=== PATIENT | male | born 1980 | race Caucasian/White ===

== ENCOUNTER → 2022-01-26 07:35 | Outpatient (CLI) | payer OTHER, SELFPAY ==
--- NOTE | 2022-01-26 07:40 | DI.RAD.S_ITS ---
PROCEDURE: FL SHOULDER INJECTION MR/CT RT INDICATIONS: SHOULDER PAIN COMPARISON: None. TECHNIQUE: The indications, alternatives, benefits, risks, and complications of the procedure were explained to the patient. Written informed consent was obtained and placed in the chart. The shoulder was examined fluoroscopically and a site for needle placement chosen for entry into the glenohumeral joint from an anterior approach. The skin was prepped and draped in a sterile fashion, and 1% lidocaine infiltrated from skin down to joint capsule. A spinal needle was inserted into the glenohumeral joint, and a small amount of iodinated contrast media injected to confirm intra-articular placement of the needle tip. This was followed by approximately 12 mL dilute solution of a gadolinium containing MR contrast agent. The needle was removed and a dressing was applied. The patient was given postprocedural instructions and sent to the MR suite for MR imaging. FINDINGS: A single fluoroscopic spot image demonstrates intra-articular location of injected iodinated contrast. IMPRESSION: Successful fluoroscopically guided administration of dilute Gadolinium solution into the shoulder joint for MR arthrogram. Dictated by: Franklyn Ferraro M.D. on 01/26/2022 at 9:24 Approved by: Franklyn Ferraro M.D. on 01/26/2022 at 9:24
--- NOTE | 2022-01-26 07:41 | DI.MRI.S_ITS ---
PROCEDURE: MR SHOULDER RT W CON INDICATIONS: SHOULDER PAIN TECHNIQUE: After the administration of 12 mL of dilute intra-articular Gadolinium contrast, oblique coronal T1 and T2 spin echo with fat saturation, oblique sagittal T1 spin echo with and without fat saturation, oblique sagittal T2 fast spin echo with fat saturation, axial T1 spin echo with fat saturation through the shoulder. COMPARISON: None. FINDINGS: Image quality: Study is degraded due to large body habitus. A body coil was used instead of a dedicated shoulder coil. Rotator cuff: There is tendinosis and low-grade articular and bursal surface partial thickness tear involving distal supraspinatus at its insertion on the humeral head extending to musculotendinous junction. Distal infraspinatus is intact. Mild distal subscapularis tendinosis is seen. No full-thickness rotator cuff tendon rupture. No rotator cuff muscle atrophy on sagittal images. Bones and bursae: No bone marrow contusions or fractures. Mild acromioclavicular joint osteoarthritic changes are seen with downward osteophyte formation depressing the musculotendinous junction of supraspinatus. The acromion demonstrates conventional anatomy, without an os acromiale. Capsule and soft tissues: There is no definite focal superior anterior labral tear. Signal abnormality and contour irregularity involving anterior inferior labrum is seen at 4 to 6 o'clock position suggestive of anterior-inferior labral tear. The glenohumeral ligaments appear intact. The long head of the biceps tendon demonstrates normal location and morphology. The rotator interval appears normal, without fibrosis. The coracohumeral ligament is of normal thickness. No intra-articular bodies. IMPRESSION: 1. Suggestion of anterior-inferior labral tear at 4 to 6 o'clock position. 2. Tendinosis and low-grade articular and bursal surface partial thickness tear involving distal supraspinatus extending to musculotendinous junction. Distal subscapularis tendinosis. No full-thickness rotator cuff tendon rupture. No muscle atrophy. 3. Mild acromioclavicular joint osteoarthritis. No acute fracture or dislocation. No definite Hill-Sachs fracture is seen. Dictated by: Franklyn Ferraro M.D. on 01/26/2022 at 9:59 Approved by: Franklyn Ferraro M.D. on 01/26/2022 at 10:02
== END ==
DX: M25.511 Pain in right shoulder (principal); S46.011A Strain of muscle(s) and tendon(s) of the rotator cuff of right shoulder, initial encounter; M19.011 Primary osteoarthritis, right shoulder
CPT/HCPCS: 23350; 73222; 77002

== ENCOUNTER → 2022-03-28 08:56 | Outpatient (CLI) | payer OTHER, SELFPAY ==
[2022-03-28 10:44] LABS: COVID19 -Nasal RAPID Negative (Negative)
== END ==
PROVIDERS: Visit Provider Family Medicine Sleep Medicine
DX: Z20.822 Contact with and (suspected) exposure to COVID-19 (principal)
CPT/HCPCS: 87635; C9803

== ENCOUNTER 2022-03-30 10:29 | Day surgery (SDC) | payer OTHER, SELFPAY ==
[2022-03-28 12:13] VITALS: BMI 38.2
[2022-03-30 11:00] VITALS: BP 154/8; PULSE 66; RESP 19; TEMP 36.6; O2SAT 98
[2022-03-30 11:16] VITALS: BMI 38.2
[2022-03-30] MEDS: LACTATED RINGERS 1,000 ML 42 ML IV (11:41)
--- NOTE | 2022-03-30 13:00 | PM.HP.1 ---
History of Present Illness History of Present Illness Date Patient Seen: 03/30/22 Time Patient Seen: 12:45 Chief complaint: RIGHT SHOULDER Narrative: 41-year-old gentleman with chronic right shoulder pain that has been unresponsive to conservative treatment. MRI shows signs of a partial rotator cuff tear. Patient History Medical History DJD (degenerative joint disease) TIFFANY (obstructive sleep apnea) Tendinopathy of right rotator cuff Surgical History H/O vasectomy Hx of LASIK Family & Social History Social History: household members spouse Tobacco & Substance use: Smoking Status Former smoker alcohol intake current alcohol intake frequency 3 or more drinks per day Substance Use Type does not use Meds Home Medications and Allergies Home Medications Medication Instructions Recorded Confirmed Type No Known Home Medications 03/28/22 03/28/22 History Allergies Allergy/AdvReac Type Severity Reaction Status Date / Time No Known Drug Allergies Allergy Verified 03/30/22 11:14 Exam Vital Signs (past 8 hours): - 03/30/22 11:00 Temperature 97.8 F Pulse Rate 66 Respiratory Rate 19 Blood Pressure 154/8 H Pulse Oximetry 98 Oxygen Delivery Method Room Air Narrative Exam Narrative: Difficulty with active range of motion but has full passive range of motion. No sign of any stiffness or contractures. No sign of any glenohumeral joint crepitus or instability. Pain and weakness with supraspinatus strength testing and positive impingement signs. Assessment & Plan Assessment & Plan narrative: Right shoulder impingement with partial rotator cuff tear that has been unresponsive to conservative treatment. Due to this fact patient is interested in surgery. All of his questions and concerns were answered to his full satisfaction. The risk, benefits, alternatives, possible complications, operative course, and postop outcomes were discussed. Complications including but not limiting to bleeding, infection, fracture, nerve injury, continued pain postoperatively or instability postoperatively were discussed in detail. Medical complications including but not limited to deep venous thrombosis event, anesthesia complications with excessive bleeding, vascular events or cardiac events and other possible complications were discussed in detail. Need for postoperative rehabilitation and anticipated hospital stay and clinical course were discussed in detail. Patient acknowledges understanding and elects to proceed with surgery. Time Spent With Patient Critical Care time: I spent a total of [] minutes of critical care time on this patient's care today; this time is exclusive of procedural time.
--- NOTE | 2022-03-30 13:02 | PM.PREOP ---
Pre-operative Note Interval Note History & Physical reviewed/Exam performed by Physician: Yes Changes to H&P: No
--- NOTE | 2022-03-30 13:33 | SUR.PREOP ---
Block start time [1300 ] . Monitoring initiated and maintained throughout procedure. Oxygen and medications given per anesthesiologist instructions. Patient remained stable throughout procedure, no adverse reactions noted. Block end time [1330 ].
[2022-03-30] MEDS: CEFAZOLIN 2 GM/20 ML SYRINGE IV (13:45)
[2022-03-30] MEDS: BUPIVACAINE 0.5% W/ EPI (PF) 30 ML VIAL 10 ML INJ (14:00)
--- NOTE | 2022-03-30 14:03 | SUR.OPER ---
Beach chair on padded OR bed. Head secured with head cradle with forehead and chin straps. Non-operative arm secured <90 degrees abduction on padded arm board. Pillow under knees. Safety belt at thigh. Gel pad under heels.
[2022-03-30] MEDS: EPINEPHRINE IRR (14:30)
[2022-03-30] MEDS: SODIUM CHLORIDE IRR (14:30)
--- NOTE | 2022-03-30 14:36 | P.OP_ITS ---
Operative Date/Time/Diagnoses Date of procedure: 03/30/22 Time of procedure: 13:30 Pre-op diagnosis: Right shoulder partial rotator cuff tear with subacromial impingement. Post-op diagnosis: same Procedure & Clinicians Procedure: Right shoulder arthroscopic extensive debridement with subacromial decompression. Same procedure as scheduled: Yes Indications: Patient with right shoulder pain unresponsive to conservative treatment. Patient had MRI findings of a partial rotator cuff tear. Surgeon: Margarito Chase [employer] Sales Leader: Ridge Edmonds Anesthesia Type: General and Peripheral nerve block Operative Notes Findings: Mild to moderate partial rotator cuff tearing mainly involving the bursal aspect of the rotator cuff. No sign of any high-grade tears or full-thickness tears. Patient had rather mild partial tearing involving the articular surface. Synovitis and bursitis in the subacromial and subdeltoid space. Some signs of AC joint arthritis but not significant. Bicep tendon free of any tearing or pathology. Slight fraying of the superior labrum but no sign of any significant SLAP tear. No sign of any Bankart tear. No sign of any loose bodies in the glenohumeral joint. No sign of any stone loss of cartilage to the glenohumeral joint Estimated Blood Loss (mL): 5 Procedure in detail: On date of service, Patient was met in the holding area. The operative site was signed and witnessed by the OR staff. The surgeries once again discussed with the patient and any remaining questions they had were answered fully. Patient was taken back to the operating theater and placed on the operating table in a supine position. Great care was taken to ensure that all bony prominences were properly padded. Patient was then placed into the beach chair position. The head and neck were properly positioned and secured. A timeout was performed verifying patient's name, procedure, and the operative site. The upper extremity was then prepped and draped in the normal sterile fashion. Previously, the bony anatomy and portal sites were marked out as well as injected with Marcaine with epinephrine. An 11 blade was used to make an incision in the posterior aspect of the shoulder. The camera was placed, and a diagnostic shoulder scope was performed. Findings listed above. Next under direct visualization, a anterior portal was made. Shaver was placed into the anterior portal and a extensive debridement of the glenohumeral joint was performed. Shaver was used to debride the degenerative changes throughout the labrum as well as a type 1 slap tear. Also used to debride the partial tearing to the articular surface of the rotator cuff. We debrided down to more healthy rotator cuff tissue. Next the camera was placed into the subacromial space. A lateral portal was obtained under direct visualization. A combination of the shaver and vapor wand, a debridement of the inflamed tissue as well as inflamed bursa was performed. The lateral gutter was also cleaned out. This gave us good visualization of the bursal aspect of the rotator cuff as well as the acromial arch. There was an obvious impingement lesion in the acromial arch. Shaver was used to debride the subacromial and subdeltoid space. This gave us good visualization of the bursal aspect of the rotator cuff. There was some [id number] fraying of the rotator cuff but no sign of any high-grade tears or full-thickness tears. Next we turned our attention to the subacromial decompression. Next, a richar was then used to do a subacromial decompression. This allowed us to convert the acromion to a type I acromial. This also allowed us to shave down the bony lesion in the acromial space. The rasp was placed into the lateral portal as well as the anterior portal in order to do a complete subacromial decompression. We next turned our attention to the distal clavicle. Soft tissue around the inferior aspect of the distal clavicle and AC joint was removed. No sign of any significant inferior osteophytes were AC joint arthritis. We then turned our attention to the rotator cuff tear. Shaver was used to debride once again any fraying or partial tearing to the superior portion of the rotator cuff. Also used to remove any remaining synovitis and inflamed bursal tissue. The shoulder was then taken through range of motion and there was no sign of any additional impingement. Patient's shoulder was then cleaned dried and dressed and patient was taken to the PACU in stable condition. Complications: none Post-operative Condition: stable Disposition: PACU Plan for aftercare: Patient will follow our postoperative protocol for subacromial decompression.
[2022-03-30 14:44] VITALS: BP 146/96; PULSE 78; RESP 13; TEMP 36.5; O2SAT 93
[2022-03-30 14:53] VITALS: BP 123/76; PULSE 78; RESP 15; TEMP 36.4; O2SAT 93
[2022-03-30 15:00] VITALS: BP 130/62; PULSE 70; RESP 20; TEMP 36.3; O2SAT 93
--- NOTE | 2022-03-30 15:38 | P.PCN_ITS ---
Procedures Date/Time Date of procedure: 03/30/22 Time of procedure: 13:15 General Procedure description: Ultrasound guided interscalene brachial plexus nerve block for post op pain control after right shoulder arthroscopy by Dr. Chase. Risk and benefits of procedure discussed with patient. ASA monitoring applied to patient. O2 given via nasal cannula. 2 mg Versed and 50 mcg fentanyl given for procedural sedation. Skin site was prepped with chlorhexidine and allowed to fully dry. Sterile gloves, mask, hat and probe cover were used to maintain sterility. 2% lidocaine and 30ga needle was used to make a small skin wheal at needle inser tion site. Under ultrasound guidance, a 21ga 50mm Pajunk needle was directed into the interscalene groove (middle/anterior scalenes) near the brachial plexus. Patient reported no parasthesias. After negative aspiration, 20 mL 0.5% ropivicaine and 10mg dexamethasone were injected around brachial plexus. Patient tolerated procedure well.
== END 2022-03-30 15:52 | disposition home or self-care (01) ==
PROVIDERS: Referring Provider Orthopaedic Surgery; Visit Provider Orthopaedic Surgery
PROC: 0RQJ4ZZ Repair Right Shoulder Joint, Percutaneous Endoscopic Approach (ICD-10-PCS; CPT 29807; principal; 2022-03-30 13:00)
DX: S43.491A Other sprain of right shoulder joint, initial encounter (principal); M65.811 Other synovitis and tenosynovitis, right shoulder; M75.51 Bursitis of right shoulder; M19.011 Primary osteoarthritis, right shoulder; S43.431A Superior glenoid labrum lesion of right shoulder, initial encounter; G47.33 Obstructive sleep apnea (adult) (pediatric)
CPT/HCPCS: 29823; 29826; 64450; J0171; J0690; J1100; J2250; J2405; J2704; J3010

== ENCOUNTER 2023-08-28 06:08 | Day surgery (SDC) | payer OTHER, SELFPAY ==
[2023-08-22 12:56] VITALS: BMI 41.2
[2023-08-28 07:13] VITALS: BMI 40.9
[2023-08-28] MEDS: LACTATED RINGERS 1,000 ML 42 ML IV (07:17)
[2023-08-28 07:18] VITALS: BP 130/79; PULSE 73; RESP 17; TEMP 36.3; O2SAT 97
--- NOTE | 2023-08-28 07:35 | PM.PREOP ---
Pre-operative Note COVID-19 COVID-19 status: Not tested Interval Note History & Physical reviewed/Exam performed by Physician: Yes Changes to H&P: No ASA Class (for procedural sedation): II
[2023-08-28] MEDS: CEFAZOLIN 2 GM/100 ML PREMIX 100 ML IV (08:00)
[2023-08-28] MEDS: BUPIVACAINE 0.5% (PF) 30 ML, EPINEPHrine 0.15 MG INJ (08:09)
[2023-08-28 08:49] VITALS: BP 125/66; PULSE 80; RESP 16; TEMP 36.1; O2SAT 99
[2023-08-28 08:54] VITALS: BP 127/70; PULSE 80; RESP 12; O2SAT 98
--- NOTE | 2023-08-28 08:55 | PM.OP.1 ---
Operative Date/Time/Diagnoses Date of procedure: 08/28/23 Time of procedure: 08:55 Pre-op diagnosis: Umbilical hernia Post-op diagnosis: same Procedure & Clinicians Procedure: Open umbilical hernia repair with mesh Same procedure as scheduled: Yes Surgeon: Indio Redman Anesthesia Type: General Operative Notes Procedure in detail: Ancef was administered. The patient was brought to the operating room, placed on the table in the supine position and general endotracheal anesthesia was induced. The abdomen was prepped and draped in the usual fashion. A time-out was performed. A 5 cm curvilinear incision was made inferior to the umbilicus. The hernia sac was dissected free from the surrounding subcutaneous adipose tissue. The sac was dissected off the umbilical stalk using a combination of cautery, sharp and blunt dissection. The hernia sac was dissected free from the fascial ring and allowed to drop back down into the abdomen. The fascia was then closed transversely with multiple interrupted 0 Ethibond sutures. The subcutaneous adipose tissue was cleared off of the anterior sheath circumferentially about 2 cm in each direction. A piece of polypropylene mesh was trimmed to fit over the fascial closure and secured with Tisseel. Once the Tisseel was dried the umbilical skin was tacked down to the deep subcutaneous adipose tissue with a single 3-0 Vicryl stitch. The skin was closed with multiple interrupted 3-0 Vicryl dermal sutures followed by a running 4 Monocryl subcuticular closure. Steri-Strips were applied and an abdominal binder was applied. EBL: 10 mL Post-operative Condition: stable Disposition: PACU
[2023-08-28 09:00] VITALS: BP 140/74; PULSE 78; RESP 12; O2SAT 98
[2023-08-28 09:03] VITALS: BP 134/82; PULSE 74; RESP 13; O2SAT 98
[2023-08-28 09:08] VITALS: BP 139/83; PULSE 72; RESP 16; TEMP 35.9; O2SAT 97
== END 2023-08-28 09:28 | disposition home or self-care (01) ==
PROVIDERS: PCP Internal Medicine; Referring Provider Surgery; Visit Provider Surgery
PROC: (CPT 49591; principal; 2023-08-28 07:45)
DX: K42.9 Umbilical hernia without obstruction or gangrene (principal)
CPT/HCPCS: 49591; J0171; J0690; J1100; J1885; J2250; J2405; J2704; J3010

== ENCOUNTER 2024-03-13 12:17 | Emergency (ER) | payer OTHER, SELFPAY ==
[2024-03-13 12:30] VITALS: BP 145/92; PULSE 76; RESP 18; TEMP 36.4; O2SAT 94; BMI 38.6
--- NOTE | 2024-03-13 13:09 | ED.HA ---
HPI - Headache <Lloyd Alcantar PA-C - Last Filed: 03/13/24 14:35> General Chief Complaint: Headache Stated Complaint: memory loss Time Seen by Provider: 03/13/24 13:09 Mode of arrival: Ambulatory History of Present Illness HPI Narrative: This is a 43-year-old male presents emergency department due to 3-4 weeks reported episodes of ?forgetting things as well as? in his placing words. He states that for example when he said welcome to the ?Sunday meeting? he misplaced the word Sunday with the word ?fart?.. States there have been multiple episodes of of this causing him to be concerned. He was also reporting headaches for the last 2 weeks. Denies any slurred speech, nausea, vomiting, chest pain, or any other concerning signs or symptoms. Related Data Home Medications Medication Instructions Recorded Confirmed acetaminophen 500 mg tablet 500 mg PO Q6H PRN Pain (Scale 07/18/23 08/28/23 (Tylenol Extra Strength) Score 1-3) aluminum chloride 20 % topical 1 applic topical 3XW 07/18/23 08/28/23 solution (Drysol) ibuprofen 800 mg tablet 800 mg PO Q8H PRN Pain (Scale 07/18/23 08/28/23 Score 1-3) diclofenac sodium 1 % topical gel 1 ea topical DAILY 08/28/23 08/28/23 terbinafine HCl 250 mg tablet 250 mg PO DAILY 08/28/23 08/28/23 Allergies Allergy/AdvReac Type Severity Reaction Status Date / Time No Known Drug Allergies Allergy Verified 09/17/23 08:59 Review of Systems <Lloyd Alcantar PA-C - Last Filed: 03/13/24 14:35> Review of Systems Narrative: GENERAL: Denies chills, fatigue, malaise, fever, sweats. HEENT: Denies sinus pain, ear pain, sore throat, difficulty swallowing, dizziness. RESPIRATORY: Denies dyspnea, cough, wheezing, hemoptysis, sputum. CARDIOVASCULAR: Denies chest pain, palpitations, orthopnea, edema, GASTROINTESTINAL: Denies nausea, vomiting, abdominal pain, diarrhea, constipation, melena. : Denies dysuria, frequency, incontinence, hematuria, urinary retention. MUSCULOSKELETAL: denies weakness, joint pain, or bony pain SKIN: Denies rash, skin lesions, or other NEUROLOGIC: Reports ?misplacing words? headache, episodes of forgetfulness, Denies weakness, , numbness, seizures, incoordination. PSYCHIATRIC: No concerning psychosocial issues. 12 point review of systems is negative except for those stated above Patient History <Lloyd Alcantar PA-C - Last Filed: 03/13/24 14:35> Medical History Prediabetes Carpal tunnel syndrome Tendinopathy of right rotator cuff DJD (degenerative joint disease) TIFFANY (obstructive sleep apnea) Surgical History History of arthroscopy of right shoulder (03/30/22) H/O vasectomy Hx of LASIK Social History household members: spouse Smoking Status: Former smoker alcohol intake: current Smoking Status: Former smoker alcohol intake frequency: holidays/special occasions only Substance Use Type: does not use Exam <Lloyd Alcantar PA-C - Last Filed: 03/13/24 14:35> Narrative Exam Narrative: GENERAL: Well-developed patient, in mild distress. HEAD: Atraumatic. Normocephalic. EYES: Pupils equal round and reactive. Extraocular motions intact. No scleral icterus. No injection or drainage. ENT: Nose without bleeding, purulent drainage. Throat without erythema, tonsillar hypertrophy or exudate. Airway patent. NECK: Trachea midline. Non tender EXTREMITIES: No edema or joint tenderness. NEURO: AOx3. Cranial nerves 2-12 intact SKIN: No rash or erythema of visible areas Initial Vital Signs Initial Vital Signs: Vital Signs Temperature 97.5 F L 03/13/24 12:30 Pulse Rate 76 03/13/24 12:30 Respiratory Rate 18 03/13/24 12:30 Blood Pressure 145/92 H 03/13/24 12:30 Pulse Oximetry 94 03/13/24 12:30 Oxygen Delivery Method Room Air 03/13/24 12:30 <Kayley Han DO - Last Filed: 03/14/24 10:40> Initial Vital Signs Initial Vital Signs: Vital Signs Temperature 97.5 F L 03/13/24 12:30 Pulse Rate 76 03/13/24 12:30 Respiratory Rate 18 03/13/24 12:30 Blood Pressure 145/92 H 03/13/24 12:30 Pulse Oximetry 94 03/13/24 12:30 Oxygen Delivery Method Room Air 03/13/24 12:30 Course <Lloyd Alcantar PA-C - Last Filed: 03/13/24 14:35> Orders Ordered: ED Orders 03/13/24 13:32 CT head/brain wo con Stat 03/13/24 13:42 Complete Blood Count AUTO DIFF Stat Comprehensive Metabolic Panel Stat Vital Signs Vital signs: Vital Signs - 8 hr 03/13/24 12:30 Temperature 97.5 F L Pulse Rate 76 Respiratory Rate 18 Blood Pressure 145/92 H Pulse Oximetry 94 Oxygen Delivery Method Room Air <Kayley Han DO - Last Filed: 03/14/24 10:40> Orders Ordered: ED Orders 03/13/24 13:32 CT head/brain wo con Stat 03/13/24 13:42 Complete Blood Count AUTO DIFF Stat Comprehensive Metabolic Panel Stat Vital Signs Vital signs: Vital Signs - 8 hr 03/13/24 12:30 Temperature 97.5 F L Pulse Rate 76 Respiratory Rate 18 Blood Pressure 145/92 H Pulse Oximetry 94 Oxygen Delivery Method Room Air MDM - Headache <Lloyd Alcantar PA-C - Last Filed: 03/13/24 14:35> Lab Data 03/13/24 13:42 03/13/24 13:42 Labs: Lab Results 03/13/24 Range/Units 13:42 WBC 8.0 (4.5-11.0) X10^3/uL RBC 5.12 (4.5-5.9) X10^6/uL Hgb 14.7 (13.5-17.5) g/dL Hct 43.0 (41-53) % MCV 84.1 (80-100) fL MCH 28.8 (26-34) PG MCHC 34.2 (30-36) % RDW 13.3 (11.6-14.8) % Plt Count 304 (150-400) X10^3/uL Neut % (Auto) 52.8 (50-75) % Lymph % (Auto) 35.6 (25-40) % [place] % (Auto) 8.4 (3-14) % Eos % (Auto) 2.6 (2-4) % Baso % (Auto) 0.6 (0-2) % Neut # (Auto) 4200 (5799-9441) /uL Lymph # (Auto) 2800 (3706-0355) /uL [place] # (Auto) 700 (0-900) /uL Eos # (Auto) 200 (0-450) /uL Baso # (Auto) 0 (0-100) /uL Sodium 139 (137-145) mmol/L Potassium 4.8 (3.4-5.1) mmol/L Chloride 103 (98-107) mmol/L Carbon Dioxide 28 (22-32) mmol/L BUN 11 (9-20) mg/dL Creatinine 0.75 (0.66-1.25) mg/dL Estimated GFR > 60 (>60) mL/min BUN/Creatinine Ratio 14.7 (6-22) Glucose 88 (70-100) mg/dL Calcium 9.8 (8.4-10.2) mg/dL Total Bilirubin 1.1 (0.2-1.3) mg/dL AST 32 (17-59) IU/L ALT 54 H (<50) IU/L Alkaline Phosphatase 94 (38-126) U/L Total Protein 8.2 (6.3-8.2) g/dL Albumin 5.0 (3.5-5.0) g/dL Globulin 3.2 (1.7-4.1) g/dL Albumin/Globulin Ratio 1.6 (1.0-2.8) Imaging Data CT scan - head: Radiologist's Impression: [address] [address] [address] Scan Report Signed Patient: Lionel Mascorro MR#: [id number] : 1980 Acct:[id number] Age/Sex: 43 / M Date of Service: 03/13/24 Loc: ED Accession Number: [id number] Procedure: CT head/brain wo con Ordering Provider: Lloyd Alcantar P.A-C PROCEDURE: CT HEAD/BRAIN WO CON INDICATIONS: Headaches and difficulty word finding TECHNIQUE: Noncontrast 4.5 mm thick angled axial sections acquired from the foramen magnum to the vertex, with coronal and sagittal reformats. For radiation dose reduction, the following was used: automated exposure control, adjustment of mA and/or kV according to patient size. COMPARISON: None. FINDINGS: Image quality: Diagnostic. CSF spaces: Basal cisterns are patent. No extra-axial fluid collections. Ventricles are normal in size and shape. Brain: No midline shift. No intracranial masses or hemorrhage. Bloom-white matter interface is normal. Skull and face: Calvarium and visualized facial bones are intact, without suspicious lesions. Sinuses: Visualized sinuses and mastoids are clear. IMPRESSION: 1. No acute intracranial abnormalities. If clinical symptoms persist or clinical suspicion for pathology is high, consider MRI for further evaluation. Dictated by: Bob Goldberg M.D. on 03/13/2024 at 14:14 Approved by: Bob Goldberg M.D. on 03/13/2024 at 14:15 [facility] Narrative Medical decision making narrative: ED course: This is a 43-year-old male presents emergency department due to episodes of forgetfulness as well as miss placing words. Complaining of mild headache. There were no significant neuro abnormalities noted on exam. Lab work and CT head were ordered which were all very reassuring. Discussed that patient should follow up with the primary care provider for further workup and management. CC: Forgetfulness Complicating co-morbidities: History of hypertension and prediabetes Data collected from: Previous notes Medical records reviewed: Patient was not been to this emergency department in the past. Differential considered, but not limited to: Ischemic stroke, subarachnoid hemorrhage, TIA, early-onset dementia Exam documented above, pertinent findings include: Neuro exam unremarkable Lab Test results independently reviewed as above. Pertinent findings: Lab work unremarkable Imaging studies independently reviewed: CT head showed no abnormalities Scores Used: None MIPS Elements: None Consultations: None Treatments: None Re-evaluations: None Discussion: Discussed plan with the patient was comfortable with the plan Diagnosis: Episodes of forgetfulness Disposition: see below, along with detailed discharge instructions that have been reviewed with patient as well as indications for ED re-evaluation and additional outpatient follow up <Kayley Han, - Last Filed: 03/14/24 10:40> Lab Data Labs: Lab Results 03/13/24 Range/Units 13:42 WBC 8.0 (4.5-11.0) X10^3/uL RBC 5.12 (4.5-5.9) X10^6/uL Hgb 14.7 (13.5-17.5) g/dL Hct 43.0 (41-53) % MCV 84.1 (80-100) fL MCH 28.8 (26-34) PG MCHC 34.2 (30-36) % RDW 13.3 (11.6-14.8) % Plt Count 304 (150-400) X10^3/uL Neut % (Auto) 52.8 (50-75) % Lymph % (Auto) 35.6 (25-40) % [place] % (Auto) 8.4 (3-14) % Eos % (Auto) 2.6 (2-4) % Baso % (Auto) 0.6 (0-2) % Neut # (Auto) 4200 (5101-9868) /uL Lymph # (Auto) 2800 (1327-1933) /uL [place] # (Auto) 700 (0-900) /uL Eos # (Auto) 200 (0-450) /uL Baso # (Auto) 0 (0-100) /uL Sodium 139 (137-145) mmol/L Potassium 4.8 (3.4-5.1) mmol/L Chloride 103 (98-107) mmol/L Carbon Dioxide 28 (22-32) mmol/L BUN 11 (9-20) mg/dL Creatinine 0.75 (0.66-1.25) mg/dL Estimated GFR > 60 (>60) mL/min BUN/Creatinine Ratio 14.7 (6-22) Glucose 88 (70-100) mg/dL Calcium 9.8 (8.4-10.2) mg/dL Total Bilirubin 1.1 (0.2-1.3) mg/dL AST 32 (17-59) IU/L ALT 54 H (<50) IU/L Alkaline Phosphatase 94 (38-126) U/L Total Protein 8.2 (6.3-8.2) g/dL Albumin 5.0 (3.5-5.0) g/dL Globulin 3.2 (1.7-4.1) g/dL Albumin/Globulin Ratio 1.6 (1.0-2.8) Discharge Plan Departure Patient Disposition: Home Clinical Impression: Headache Activity Restrictions/Additional Instructions: Thank you for coming to the [facility] Emergency Department today. As we discussed the lab work and CT head were unremarkable. There was no evidence of any kind of bleed or brain mass or any other concerning findings. I do recommend he follow up with the primary care provider for further management and workup your symptoms continue. Please return to the emergency department if you develop any significant slurred speech, facial drooping, extremity weakness, or any other concerning signs or symptoms. I hope you feel better soon. Please follow up with your primary care provider within a week if your symptoms continue. If you do not have a primary care provider please contact the [facility] Resource line at [phone]. They will ask some questions about your medical history and help you get set up with a provider in the community. Prescriptions: No Action ibuprofen 800 mg tablet 800 mg PO Q8H PRN (Reason: Pain (Scale Score 1-3)) acetaminophen [Tylenol Extra Strength] 500 mg tablet 500 mg PO Q6H PRN (Reason: Pain (Scale Score 1-3)) Drysol 20 % solution 1 applic topical 3XW terbinafine HCl 250 mg tablet 250 mg PO DAILY diclofenac sodium 1 % gel 1 ea topical DAILY Referrals: Phil Beck MD [Primary Care Provider] - Stand Alone Forms: Patient Portal/API ED Sign-out <Kayley Han DO - Last Filed: 03/14/24 10:40> Cosign ED Attending Coschristopherature Attestation: I was immediately available in the department for consultation. Case was discussed. Plan for labs and CT.
--- NOTE | 2024-03-13 13:32 | DI.CT.S_ITS ---
PROCEDURE: CT HEAD/BRAIN WO CON INDICATIONS: Headaches and difficulty word finding TECHNIQUE: Noncontrast 4.5 mm thick angled axial sections acquired from the foramen magnum to the vertex, with coronal and sagittal reformats. For radiation dose reduction, the following was used: automated exposure control, adjustment of mA and/or kV according to patient size. COMPARISON: None. FINDINGS: Image quality: Diagnostic. CSF spaces: Basal cisterns are patent. No extra-axial fluid collections. Ventricles are normal in size and shape. Brain: No midline shift. No intracranial masses or hemorrhage. Bloom-white matter interface is normal. Skull and face: Calvarium and visualized facial bones are intact, without suspicious lesions. Sinuses: Visualized sinuses and mastoids are clear. IMPRESSION: 1. No acute intracranial abnormalities. If clinical symptoms persist or clinical suspicion for pathology is high, consider MRI for further evaluation. Dictated by: Bob Goldberg M.D. on 03/13/2024 at 14:14 Approved by: Bob Goldberg M.D. on 03/13/2024 at 14:15
[2024-03-13 13:59] LABS: Add Manual Diff / Slide Review NO; Basophils Absolute Auto 0 /uL (0-100); Basophils Percent Auto 0.6 % (0-2); Eosinophils Absolute Auto 200 /uL (0-450); Eosinophils Percent Auto 2.6 % (2-4); Hemoglobin 14.7 g/dL (13.5-17.5); Lymphocytes Absolute Auto 2800 /uL (1100-4500); Lymphocytes Percent Auto 35.6 % (25-40); Mean Corpuscular HGB Conc 34.2 % (30-36); Mean Corpuscular Hemoglobin 28.8 PG (26-34); Mean Corpuscular Volume 84.1 fL (80-100); Monocytes Absolute Auto 700 /uL (0-900); Monocytes Percent Auto 8.4 % (3-14); Neutrophils Absolute Auto 4200 /uL (1500-7000); Neutrophils Percent Auto 52.8 % (50-75); Platelet Count 304 X10^3/uL (150-400); Red Blood Cell Count 5.12 X10^6/uL (4.5-5.9); Red Cell Distribution Width 13.3 % (11.6-14.8)
[2024-03-13 14:16] LABS: Alanine Aminotransferase 54 IU/L (<50); Albumin Globulin Ratio 1.6 (1.0-2.8); Alkaline Phosphatase 94 U/L (38-126); Aspartate Aminotransferase 32 IU/L (17-59); BUN Creatinine Ratio 14.7 (6-22); Bilirubin Total 1.1 mg/dL (0.2-1.3); Blood Urea Nitrogen 11 mg/dL (9-20); Calcium 9.8 mg/dL (8.4-10.2); Carbon Dioxide 28 mmol/L (22-32); Chloride 103 mmol/L (98-107); Estimated Glomerular Filt Rate > 60 mL/min (>60); Globulin 3.2 g/dL (1.7-4.1); Glucose 88 mg/dL (70-100); HEMOLYSIS < 15 (0-50); Potassium 4.8 mmol/L (3.4-5.1); Sodium 139 mmol/L (137-145); Total Protein 8.2 g/dL (6.3-8.2)
[2024-03-13 14:43] VITALS: PULSE 78; RESP 18; O2SAT 98
== END 2024-03-13 14:45 | disposition home or self-care (01) ==
PROVIDERS: Emergency Provider Physician Assistant Medical; PCP Internal Medicine
DX: R51.9 Headache, unspecified (principal)
CPT/HCPCS: 36415; 70450; 80053; 85025; 99283; 99284